=== PATIENT | male | born 1970 | race Caucasian/White ===

== ENCOUNTER 2017-05-20 16:07 | Emergency (ER) | payer OTHER ==
[~2017-05-20] VITALS: Ht 180.3 cm; Wt 124.3 kg
[2017-05-20 19:34] VITALS: BP 159/110
== END 2017-05-20 19:34 | disposition home or self-care (01) ==
LOC: ED 16:07
DX: M79.1 Myalgia (principal); I10 Essential (primary) hypertension; V49.9XXA Car occupant (driver) (passenger) injured in unspecified traffic accident, initial encounter; Y93.89 Activity, other specified; Y92.89 Other specified places as the place of occurrence of the external cause; Y99.8 Other external cause status
CPT/HCPCS: J3010

== ENCOUNTER 2017-10-20 16:09 | Emergency (ER) | payer OTHER ==
[~2017-10-20] VITALS: Ht 180.3 cm; Wt 122.5 kg
[2017-10-20 16:13] VITALS: Ht 180.3 cm; Wt 122.5 kg
[2017-10-20 19:07] VITALS: BP 148/88
== END 2017-10-20 19:08 | disposition home or self-care (01) ==
LOC: ED 16:09
DX: S39.012A Strain of muscle, fascia and tendon of lower back, initial encounter (principal); S16.1XXA Strain of muscle, fascia and tendon at neck level, initial encounter; I10 Essential (primary) hypertension; V43.62XA Car passenger injured in collision with other type car in traffic accident, initial encounter; Y93.I9 Activity, other involving external motion; Y92.89 Other specified places as the place of occurrence of the external cause; Y99.8 Other external cause status; Y93.89 Activity, other specified
CPT/HCPCS: J1885